=== PATIENT | female | born 1985 | race Caucasian/White ===

== ENCOUNTER 2024-06-10 14:02 | Outpatient (CLI) | payer SELFPAY ==
[2024-06-10 14:35] LABS: Mean Corpuscular HGB Conc 33.3 g/dl (32-36); Mean Corpuscular Hemoglobin 32.5 pg (26-34); Mean Corpuscular Volume 97.5 fl (80-100); Mean Platelet Volume 9.3 fl (7.4-10.4); Platelet Count Result 280 k/mm3 (150-375); Red Cell Distribution Width 12.1 % (11.5-14.5); White Blood Count 4.9 K/mm3 (4.5-10.0)
[2024-06-10 14:48] LABS: Albumin Level 3.9 g/dL (3.5-5.1); Anion Gap 8 mmol/L (4-12); Blood Urea Nitrogen 6 mg/dL (7-17); Calcium 8.7 mg/dL (8.4-10.2); Carbon Dioxide 26 mmol/L (22-30); Chloride 102 mmol/L (98-107); Estimated Glomerular Filt Rate > 60; Glucose 65 mg/dL (65-110); Potassium 3.9 mmol/L (3.4-5.0); Sodium 136 mmol/L (137-145)
[2024-06-10 14:50] LABS: Iron 85 ug/dL (37-170)
[2024-06-10 14:53] LABS: Hemoglobin A1C 4.6 % (<5.7)
[2024-06-10 14:55] LABS: Prealbumin 19.9 mg/dL (17.6-36.0)
[2024-06-13 17:44] LABS: Vitamin B1 15 nmol/L (8-30)
== END 2024-06-10 14:03 | disposition home or self-care (01) ==
PROVIDERS: Visit Provider Surgery Plastic and Reconstructive Surgery
DX: R63.4 Abnormal weight loss (principal)
CPT/HCPCS: 36415; 80048; 82040; 83036; 83540; 84134; 84425; 85027

== ENCOUNTER 2024-07-15 00:09 | Day surgery (SDC) | payer OTHER, SELFPAY ==
[2024-07-08 10:23] VITALS: BMI 23.1
--- NOTE | 2024-07-08 10:35 | SUR.PREOP ---
Report to the Outpatient Waiting Room, entrance under the green pavilion located off [facility], at time 6:00a.m. on date 07/15/2024. Planned Procedure Time: 7:30a.m.? Time changes happen often and if your time is changed the preop area will call you the afternoon before. - You and your visitor will be asked to self-screen and do not enter if you have any COVID symptoms. Please call surgeon if you need to reschedule. - A mask is optional within the hospital at this time. Patients may have clear liquids (water, carbonated beverages, clear teas, apple juice) until 3 hours prior to surgery with a maximum of 20 ounces. - No food from midnight until time of surgery and no smoking - Infants may have breast milk until 4 hours before surgery, infant formula 6 hours prior to surgery. - Children will be allowed to drink immediately following surgery.? If applicable, please bring a bottle or sippy cup to assist with drinking. Juice, water, soda, and popsicles are readily available.? For infants on formula, please bring formula the day of surgery.? Pacifiers are allowed. Take only the following medications with a SIP of water on the morning of surgery: [place] Thyroid DO NOT STOP ANY OF YOUR OTHER PRESCRIPTION MEDICATIONS PRIOR TO SURGERY EXCEPT THE FOLLOWING Medications to discontinue per physician vitamins and supplements Date to take last dose 07/12/2024 Please no make-up, nail haitian, hairspray, perfume, deodorant, or body powder the day of surgery.? No jewelry (including any body piercings) or valuables the day of surgery, leave them at home.? Please take a shower or bath the night before, or the morning of, surgery with an antibacterial soap.? Wear comfortable, loose fitting clothing.? Children are encouraged to wear pajamas. - Jewelry must be removed prior to entering the operating room.? Rings and piercings that are not removed may be cut off. - The hospital will not accept responsibility for valuables.? - Please leave all valuables, including medications, at home the day of surgery. If you are going home after surgery, a licensed coach driver must drive you home.? - NO public transportation without another adult if you receive anesthesia. - We recommend that an adult stay with you for 24 hours following discharge. - We also recommend that you do not drive, make important decision, drink alcoholic beverages, or take any drugs that were not prescribed by your health care provider for at least 24 hours after your discharge time. For Pediatric surgeries, we recommend two adults accompany the child home. Follow any additional instructions given to you from your surgeon. Telephone instructions given to Laura Al and asked if any additional questions and then verbalized understanding. Patient advised to call surgeon office or pre surgery nurse liaison [phone] if any additional questions.
[2024-07-15] VITALS (15 sets, daily range): BP systolic 119–178; BP diastolic 59–81; PULSE 77–126; RESP 10–20; TEMP 35.7–37.1; O2SAT 99–100
--- NOTE | 2024-07-15 05:55 | ECG_ITS ---
Test Date: 2024-07-15 07:23:10 Measurements Intervals [place] Rate: 69 P: 90 SD: 193 QRS: 31 QRSD: 90 T: 30 QT: 408 QTc: 438 Interpretive Statements SINUS RHYTHM BASELINE ARTIFACT- I, II, III, AVR, AVL, AVF, V1, V3 NORMAL ECG No previous ECG available for comparison Electronically Signed On 07-15-2024 07:57:17 HOUSEHOLD COORDINATOR by Kevin Wiley D.O.
[2024-07-15 06:40] LABS: Urine Cotinine NEGATIVE
[2024-07-15] MEDS: LACTATED RINGERS 1,000 ML 30 ML IV CONT (06:50)
--- NOTE | 2024-07-15 06:53 | WPDHPUPDATE1 ---
History and Physical Update Update Date/Time: 07/15/24 06:53 History and Physical has been reviewed, including an updated exam of the patient. There are NO changes in the patient's condition. Risks, benefits, and alternatives have been discussed and questions answered. Patient agrees to proceed with procedure.
--- NOTE | 2024-07-15 06:55 | P.PNAN_ITS ---
Anes - Initial Pre Proc Eval Procedure: Operation Date: 07/15/24 07:30 Proposed Procedures p Belt Lipectomy with Liposuction, - Chris Navarrete MD s Fat Grafting to Bilateral Hips, - Chris Navarrete MD s Bilateral Brachioplasty - Chris Navarrtee MD Date/Time: 07/15/24 06:55 Surgeon: Chris Navarrete MD Pre Op Diagnosis: skin laxity Patient Data Age: 39 Gender: F Height: 1.7 m Weight: 67.1 kg Allergies Allergy/AdvReac Type Severity Reaction Status Date / Time Sulfa (Sulfonamide Allergy Hives Verified 07/15/24 06:39 Antibiotics) Home Medications Medication Instructions Recorded Confirmed Type ascorbic acid 30 mg-collagen, 1 tablet PO DAILY 07/08/24 07/15/24 History hydrolyzed 833.3 mg tablet (Collagen Skin Renewal) ashwagandha root extract 300 mg 300 mg PO DAILY 07/08/24 07/15/24 History capsule carisoprodol 350 mg tablet (Soma) 350 mg PO PRN PRN Muscle Spasm 07/08/24 07/08/24 History docusate sodium 100 mg capsule 100 mg PO BID 07/08/24 07/08/24 History (Colace) enoxaparin 40 mg/0.4 mL 40 mg subcut DAILY 07/08/24 07/08/24 History subcutaneous syringe (Lovenox) guar gum 1 packet PO DAILY 07/08/24 07/15/24 History oxycodone-acetaminophen 5 mg-325 5 - 325 tablet PO PRN PRN Pain 07/08/24 07/08/24 History mg tablet (Percocet) thyroid (pork) 90 mg tablet 90 mg PO DAILY 07/08/24 07/15/24 History ([place] Thyroid) turmeric root extract 500 mg 1,000 mg PO DAILY 07/08/24 07/15/24 History capsule zolpidem 5 mg tablet (Ambien) 5 mg PO HS 07/08/24 07/15/24 History Laboratory Tests 07/15/24 06:17 Cotinine Negative Patient hx anesthesia problems: none Family hx anesthesia problems: none Results Review: All pre-operative results and documents have been reviewed as part of the pre- operative evaluation. [facility] Social History Social History (Reviewed 07/15/24 @ 06:55 by DENNIS March Smoking status: Never smoker Living arrangements: with family Erin Caldwell Final PreProcedure Day of Procedure 07/15/24 06:55 Patient weight: normal Heart: regular rate and rhythm Lungs: clear to auscultation Airway: Mallampati scale Neurological: alert and oriented Last oral intake: >/= 8 hours ASA classification: II Emergent: no Anesthetic plan: proceed Anesthesia type and monitoring: general ETT and standard monitoring Results Review: All pre-operative results and documents have been reviewed as part of the pre- operative evaluation. Hypothyroidism. Active w frequent yoga, no cp or sob. Informed Consent: The patient's anesthetic plan and its attendant risks and benefits were discussed with the patient/family/POA. Questions were solicited and answers provided to the satisfaction of the patient/family/POA.
--- NOTE | 2024-07-15 07:20 | P.OP_ITS ---
Procedure Note - Detailed Date of Procedure 07/15/24 Pre-op Diagnosis skin laxity Post-op Diagnosis Same Procedure Performed 1. Bilateral brachioplasty 2. Belt lipectomy with suction lipectomy 3. Fat grafting bilateral hip dips Surgeon Chris Navarrete MD Anesthesia General Findings Tissue removed: 1309.7 grams Lipoaspirate: 2,000 cc Diastasis: 4mm Significant preexisting abdominal fibrosis Her umbilicus wouldn't reach lower incision and required a small vertical scar inferior. Description of Procedure They are here today for the above procedures. Previously and again today the risks, benefits, alternatives were discussed in extensive detail. I wanted them to be very realistic about the risks involved as well as expectations. We discussed aftercare and what to monitor for. I was very upfront about the risks of wound breakdown leading to loss of skin, open wounds, and need for additional procedures with permanent abdominal deformity. We discussed DVT/PE risks and management. Made sure answered all of their questions to their satisfaction to day and consent was obtained. They were marked in the preoperative holding area with their verification. The patient was taken to the operating room. Anesthesia was provided by anesthesiology. A Carranza catheter was started. Posterior body Placed prone on the operating room table with care taken to protect from injury. Prepped and draped in a standard sterile fashion. A surgical time-out was taken. Stab incisions were made and tumescent solution was infiltrated. Once adequate time was allowed for hemostasis a 5mm basket and 4mm lianna cannula were utilized to complete suction lipectomy based on S.A.F.E. technique in multiple planes and passes. Suction lipectomy continued to result based on pre-operative planning, intra-operative observation, and rolling pinch test which were in full agreement. A 10 blade was used to make the upper incision and dissection was continued inferior elevating what we necessary for closure. I placed patient in slight j ackknife position and excised intervening tissue. This was closed with 3 point suture with 2-0 Vicryl followed 2-0 PDO strattafix, 3-0 stratafix ,running subcuticular 4-0 Monocryl, and tissue glue. Laterally malena were placed for turning. Arms Patient was then placed supine with care taken to protect from injury. Stab incisions were made and I tumesced with a tumescent solution. Once adequate time for hemostasis suction lipectomy was with a 5mm basket cannula based on S.A.F.E. technique and 4mm lianna. This was completed based on preoperative planning, intraoperative observation, and rolling pinch test which was in full agreement. I completely de-fatted the planned resection area and a strip avulsion technique was completed. Starting proximal to distal a 10 blade was used to excise the intervening skin and this was tacked as we proceed to ensure good closure. This was closed using a 2-0 Quill, 3-0 strata fix, running subcuticular 4-0 Monocryl, and Brijit device. Dressings were placed. Abdomen I placed the patient in a flexed position to verify the upper and lower markings would reach. I then placed supine. A thorough abdominal examination was completed. Stab incisions were made and tumescent solution infiltrated. Stab incisions were made and tumescent solution was infiltrated. Once adequate time was allowed for hemostasis a 5mm basket and 4mm lianna cannula were utilized to complete suction lipectomy based on S.A.F.E. technique in multiple planes and passes. Suction lipectomy continued to result based on pre-operative planning, intra-operative observation, and rolling pinch test which were in full agreement. A 10 blade was used to make the upper incision. I continued dissection down to the level of fascia. Elevated just what was necessary for repair of the diastasis. I then again flexed the bed to verify the upper skin flap would reach the lower markings without tension. Once verified I placed her supine once again and a 10 blade used to make the lower incision. I elevated up to level the umbilicus and left the umbilicus intact on a well-vascularized stalk. The intervening tissue was removed. A 2 mm blunt cannula with 0.5% bupivacaine was injected deep to the fascia bilaterally. I plicated the diastasis recti using 0 PDO Stratafix barbed suture. This was in 2 separate layers using 2 separate sutures as well. After the patient was flexed (below) plicated the fascia with 0 PDO Stratafix in two separate layers. The patient was flexed and starting from superior to inferior began plication using 2-0 Vicryl to obliterate all space in a standard progressive tension fashion. At the umbilicus I marked out the location of the skin and inset this with 3-0 Monocryl and 4-0 Vicryl. I continued the remainder of the plication using 2-0 Vicryl until I reached my lower planned scar line. I trimmed any excess skin of the upper flap making sure this was a tension-free closure. 15 Richie drain was placed. I then approximated using a 3 point suture with 2-0 Vicryl followed by 2-0 PDO Stratafix, 3-0 Stratafix ,running subcuticular 4-0 Monocryl, and tissue glue. Fluffs and an abdominal binder were placed. The patient was transferred to the bed in a flexed position. Awoken and taken to the PACU without difficulty. All instrument and sponge counts were correct at the end of the case. Estimated Blood Loss 100 Drains Yes (15 Richie) Packing No Pathology None sent Complications No immediate complications Condition Stable Disposition PACU
[2024-07-15] MEDS: ceFAZolin 2 GM/D5W 50 ML 2 GM/50 ML BAG IVPB (07:34)
[2024-07-15] MEDS: TRANEXAMIC ACID 1,000MG/ISO100 1,000 MG/100 ML BAG 200 MG IVPB (07:34)
[2024-07-15] MEDS: LACTATED RINGERS IRRIG 1,000 ML, LIDOCAINE HCL 1% LOCAL INJ 50 ML, EPINEPHrine HCL INJ ... INFILTRATE (08:31)
[2024-07-15] MEDS: BUPIVACAINE/EPINEPHRINE 0.5% 50 ML VIAL 60 ML INFILTRATE (08:32)
[2024-07-15] MEDS: ceFAZolin SODIUM 1 GM VIAL 2 GM IV PUSH (14:30)
[2024-07-15] MEDS: fentaNYL CITRATE INJ (*CRX) 100 MCG/2 ML VIAL 25 MCG IV PUSH ×8 (16:00→16:20)
[2024-07-15] MEDS: HYDROmorphone HCL INJ (*CRX) 1 MG/ML SYR 0.5 MG IV PUSH ×4 (16:22→16:42)
[2024-07-15] MEDS: diphenhydrAMINE HCl INJ 50 MG/ML VIAL 25 MG IV PUSH (16:32)
--- NOTE | 2024-07-15 16:37 | SUR.PHASEI ---
Hive noted to patient's chest, and a few on her cheeks below her eyes. Patient states she is only allergic to Sulfa. She has had fentanyl and dilaudid before with no reaction. Patient states she gets hives with a stress response. 25mg of IV benadryl ordered.
[2024-07-15] MEDS: MIDAZOLAM HCL (*CRX) 2 MG/2 ML VIAL IV PUSH ×2 (16:55→18:59)
[2024-07-15] MEDS: KETOROLAC 15 MG/ML VIAL (*BKC) IV PUSH (18:06)
[2024-07-15] MEDS: oxyCODONE/ACETAMINOPHEN (*CRX) 5-325 MG TABLET PO ×2 (20:18→23:03)
--- NOTE | 2024-07-15 20:32 | ADMGEN ---
This patient, Laura Al, was admitted to Medical Room 249-01. Patient/family oriented to hospital policies and general routines including ID bracelet, bed and alarms, visiting hours, pain management, procedures, bathroom and other care routines, personal items, smoking policy, room service/diet, and visiting hours. Information on how to activate the Rapid Response Team has been discussed. Patient/Family are encouraged to report perceived risks to care and to ask questions if they do not understand what they are told or what they should do.
[2024-07-15] MEDS: DOCUSATE SODIUM 100 MG CAPSULE PO (21:34)
[2024-07-15] MEDS: carisoprodoL (*CRX) 350 MG TABLET PO (23:03)
[2024-07-15] MEDS: KETOROLAC 10 MG TABLET PO (23:04)
[2024-07-16] VITALS: BP 151/74; PULSE 78; RESP 18; TEMP 36.6; O2SAT 100
[2024-07-16] MEDS: MORPHINE SULFATE (*CRX) 2 MG/ML INJ IV PUSH ×2 (00:21→08:06)
[2024-07-16 00:41] VITALS: BP 144/65; PULSE 78; RESP 18; TEMP 36.6; O2SAT 100
[2024-07-16] MEDS: oxyCODONE/ACETAMINOPHEN (*CRX) 5-325 MG TABLET 2 TABLET PO (02:06)
[2024-07-16 04:00] VITALS: BP 108/48; PULSE 76; RESP 18; TEMP 36.4; O2SAT 98
[2024-07-16] MEDS: carisoprodoL (*CRX) 350 MG TABLET PO ×2 (05:36→11:21)
[2024-07-16] MEDS: KETOROLAC 10 MG TABLET PO ×2 (05:37→11:20)
[2024-07-16] MEDS: oxyCODONE/ACETAMINOPHEN (*CRX) 5-325 MG TABLET 1 TABLET PO ×2 (05:39→09:46)
--- NOTE | 2024-07-16 06:23 | P.PN_ITS ---
Progress Note: A&P Assessment and Plan (1) Skin laxity: Code(s): L57.4 - Cutis laxa senilis Status: Acute Assessment and Plan: Doing well after doing well after bilateral brachioplasty, belt lipectomy with suction lipectomy, and fat grafting bilateral lateral hip dips. Will discharge home. She is going to follow-up in our clinic after discharge to assist with dressings / supplies. Today we had a lengthy discussion about the care. Activity limitations. What to monitor for. What is an emergency and when to dial 911 / proceed to the ER. This was a lengthy open ended conversation making sure they were well informed. Answered all their questions. They voiced a clear understanding. Will discharge home. Call with any questions or concerns in the meantime. (2) Localized adiposity: Code(s): E65 - Localized adiposity Status: Acute Subjective Date/time seen: 07/16/24 06:23 Interval history: She woke up in some distress with pain. She states the exact same thing happened with previous and she was improved the following day. Now doing well after bilateral brachioplasty, belt lipectomy with suction lipectomy, and fat grafting bilateral lateral hip dips. Ambulating. Pain controlled. No nausea / vomiting. No fevers / chills. No shortness of breast. No chest pain. No calf tenderness. Normal hand sensation and ROM. A brigiit fell off left distal arm brachioplasty and this was secured with steri-strips overnight. Review of Systems Review of Systems: All systems reviewed & are unremarkable except as noted in HPI and below Exam Narrative: Alert & Oriented NOD Respiratory unlabored Bilateral arms soft. Hand with normal sensation. Full ROM. Good color / cap refill. Abdomen is healing well. No signs of infection. No hematoma. No seroma. Good color and capillary refill. No calf tenderness. Negative Kimberly's Objective Data Vital Signs Vital Signs: Vital Signs - 24 hr 07/15/24 15:55 07/15/24 16:10 07/15/24 16:25 Temperature 35.7 C L 37.1 C Pulse Rate 117 H 114 H 106 H Respiratory Rate 12 12 18 Blood Pressure 119/80 157/80 H 143/74 H Pulse Oximetry 100 100 100 Oxygen Delivery Simple Face Mask Simple Face Mask Simple Face Mask Oxygen Flow Rate 8 8 8 07/15/24 16:40 07/15/24 16:55 07/15/24 17:10 Temperature Pulse Rate 126 H 96 96 Respiratory Rate 18 10 L 12 Blood Pressure 178/81 H 141/72 H 136/65 Pulse Oximetry 100 100 100 Oxygen Delivery Room Air Nasal Cannula Nasal Cannula Oxygen Flow Rate 2 2 07/15/24 17:25 07/15/24 17:40 07/15/24 17:55 Temperature Pulse Rate 94 96 96 Respiratory Rate 12 12 12 Blood Pressure 138/75 137/74 127/71 Pulse Oximetry 100 99 100 Oxygen Delivery Nasal Cannula Nasal Cannula Nasal Cannula Oxygen Flow Rate 2 2 2 07/15/24 18:10 07/15/24 18:40 07/15/24 19:10 Temperature Pulse Rate 92 94 82 Respiratory Rate 10 L 14 14 Blood Pressure 139/78 144/80 H 146/59 H Pulse Oximetry 100 100 100 Oxygen Delivery Nasal Cannula Nasal Cannula Nasal Cannula Oxygen Flow Rate 2 2 2 07/15/24 19:25 07/15/24 21:10 07/15/24 20:00 Temperature 36.8 C Pulse Rate 85 89 Respiratory Rate 10 L 18 Blood Pressure 133/80 Pulse Oximetry 100 99 Oxygen Delivery Nasal Cannula Room Air Oxygen Flow Rate 2 07/16/24 00:00 07/16/24 00:41 07/16/24 04:00 Temperature 36.6 C 36.6 C 36.4 C L Pulse Rate 78 78 76 Respiratory Rate 18 18 18 Blood Pressure 151/74 H 144/65 H 108/48 L Pulse Oximetry 100 100 98 Oxygen Delivery Oxygen Flow Rate Intake/Output Intake/Output: Intake & Output 07/13/24 07/14/24 07/15/24 07/16/24 23:59 23:59 23:59 23:59 Intake Total 1650 Balance 1650 Meds/Results Medications: Active Medications Generic Name Dose Route Start Last Admin Trade Name Freq PRN Reason Stop Dose Admin Carisoprodol 350 mg 07/16/24 00:00 07/16/24 05:36 Carisoprodol (*Crx) 350 Mg Tablet PO 350 mg Q6HR LEONID Administration Diazepam 5 mg 07/15/24 18:12 Diazepam (*Crx) 5 Mg Tablet PO TID PRN Anxiety Docusate Sodium 100 mg 07/15/24 21:00 07/15/24 21:34 Docusate Sodium 100 Mg Capsule PO 100 mg Q12HR LEONID Administration Enoxaparin Sodium 40 mg 07/16/24 09:00 Enoxaparin 40 Mg/0.4 Ml Syringe SUB-Q DAILY [facility] Ketorolac Tromethamine 10 mg 07/16/24 00:00 07/16/24 05:37 Ketorolac 10 Mg Tablet PO 07/17/24 18:01 10 mg Q6HR LEONID Administration Morphine Sulfate 2 mg 07/15/24 18:12 07/16/24 00:21 Morphine Sulfate (*Crx) 2 Mg/Ml Inj IV PUSH 2 mg Q2H PRN Administration Pain Ondansetron HCl 4 mg 07/15/24 18:12 Ondansetron Inj 4 Mg/2 Ml Vial IV PUSH Q6H PRN Nausea Oxycodone/Acetaminophen 1 tablet 07/15/24 23:58 07/16/24 05:39 Oxycodone/Acetaminophen (*Crx) 5-325 Mg Tablet PO 1 tablet Q6H PRN Administration Pain Oxycodone/Acetaminophen 2 tablet 07/16/24 00:00 07/16/24 02:06 Oxycodone/Acetaminophen (*Crx) 5-325 Mg Tablet PO 2 tablet Q6H PRN Administration Pain Rated 7-10 Thyroid 90 mg 07/16/24 09:00 Thyroid 30 Mg Tablet PO DAILY [facility] Labs Labs: Laboratory Results - last 24 hr 07/15/24 06:17 Cotinine Negative
--- NOTE | 2024-07-16 06:26 | P.DS_ITS ---
DS: Admitting Diagnosis Discharge Date 07/16/2024 Admitting Diagnosis Skin laxity, localized adiposity DS: Discharge Diagnosis Discharge Diagnosis (1) Localized adiposity: Code(s): E65 - Localized adiposity Status: Acute (2) Skin laxity: Code(s): L57.4 - Cutis laxa senilis Status: Acute DS: Summary Hospital Course Hospital Course: She underwesnt bilateral brachioplasty, belt lipectomy with suction lipectomy, and fat grafting bilateral lateral hip dips. Postoperativly pain was difficult to control. Improved POD#1. Will discharge home. Time Spent with Patient Time attestation: Total time spent providing and/or coordinating discharge services: Exam Narrative: Alert & Oriented NOD Respiratory unlabored Bilateral arms soft. Hand with normal sensation. Full ROM. Good color / cap refill. Abdomen is healing well. No signs of infection. No hematoma. No seroma. Good color and capillary refill. No calf tenderness. Negative Kimberly's DS: Data Data Completed and Pending Labs on day of discharge: Labs from last 24 hours 07/15/24 06:17 Cotinine Negative Discharge Plan Discharge Patient Disposition: Home, Self-Care Discharge Instructions: POST OPERATIVE DISCHARGE INSTRUCTIONS JERMAINE NAVARRETE M.D. [facility] [address] [place] [address] * No driving for 24 hours after anesthesia and while you are taking pain medication. * Take all prescribed medication as directed * Diet as tolerated. * No lifting or activity that raises blood pressure for 48 hours. * Regular walking / ambulation. * May shower 24 hours after surgery. Once you shower do not take pain medication before showering as the combination of medication and heat may cause you to feel dizzy or pass out. * No pools or tubs for 2 weeks. * Slowly stand up straight as tolerated. * No straining or lifting more than 20 pounds. * If no bowel movement within 24 hours may use laxative. * Call with any questions or concerns. * Dressing Care: Continue abdominal binder / foam and arm elisha wraps 23 hours per day. If you have any questions or concerns, please call the office . If it is after hours you will be directed to the admission liaison exchange. Shortness of breath, chest pain, or other medical emergency dial 911 / proceed to the Emergency Room. Stand Alone Forms: General Discharge Instructions Follow-up/Referrals: Jermaine Navarrete MD [Physician] - Other (Tomorrow 07/16/2024) Discharge Orders: Discharge Order (Routine); Ordered 07/16/24 Ordered By: Jermaine Navarrete Discharge Medications: Continued carisoprodol [Soma] 350 mg tablet 350 mg PO PRN PRN (Reason: Muscle Spasm) Patient Comments: Taking this after surgery oxycodone-acetaminophen [Percocet] 5-325 mg tablet 5 - 325 tablet PO PRN PRN (Reason: Pain) Patient Comments: Taking this after surgery docusate sodium [Colace] 100 mg capsule 100 mg PO BID Patient Comments: Taking this after surgery zolpidem [Ambien] 5 mg tablet 5 mg PO HS enoxaparin [Lovenox] 40 mg/0.4 mL syringe 40 mg subcut DAILY Patient Comments: Taking this after surgery thyroid (pork) [[place] Thyroid] 90 mg tablet 90 mg PO DAILY turmeric root extract 500 mg Capsule 1,000 mg PO DAILY guar gum Packet 1 packet PO DAILY ashwagandha root extract 300 mg Capsule 300 mg PO DAILY Collagen Skin Renewal 30-833.3 mg Tablet 1 tablet PO DAILY Other Ambulatory Orders: [place] 12 lead EKG (Routine) Timeframe: [id number] Location: Determined by Patient Ordered By: Sander Buenrostro
[2024-07-16 06:29] VITALS: BP 120/67; PULSE 77; RESP 18; TEMP 36.6; O2SAT 100
[2024-07-16 08:00] VITALS: BP 149/91; PULSE 94; RESP 18; TEMP 36.6; O2SAT 100
[2024-07-16] MEDS: THYROID 30 MG TABLET 90 MG PO (08:06)
[2024-07-16] MEDS: DOCUSATE SODIUM 100 MG CAPSULE PO (08:06)
[2024-07-16] MEDS: ENOXAPARIN 40 MG/0.4 ML SYRINGE SUB-Q (08:10)
== END 2024-07-16 11:57 | disposition home or self-care (01) ==
LOC: ANHSURGERY 07:31 → ANH2MED 19:37
PROVIDERS: Visit Provider Surgery Plastic and Reconstructive Surgery
PROC: (CPT 15836; principal; 2024-07-15 07:30)
PROC: (CPT 15769; 2024-07-15 07:30)
PROC: (CPT 15836; 2024-07-15 07:30)
DX: Z41.1 Encounter for cosmetic surgery (principal); L57.4 Cutis laxa senilis; E65 Localized adiposity
CPT/HCPCS: 15836; 15878; 15877; 15830; 15847; 80307; 93005; A9270; J0171; J0330; J0690; J1100; J1171; J1200; J1650; J1885; J2003; J2250; J2270; J2405; J2704; J3010; J7120

== ENCOUNTER 2024-07-25 21:10 | Day surgery (SDC) | payer OTHER, SELFPAY ==
[2024-07-25] VITALS (8 sets, daily range): BP systolic 123–135; BP diastolic 52–73; PULSE 71–98; RESP 12–19; TEMP 36.3; O2SAT 98–100
--- NOTE | 2024-07-25 18:53 | PM.IMHP ---
H&P: HPI History of Present Illness Date/Time: 07/25/24 18:53 Chief Complaint: Open wound / bleeding abdomen Narrative: She underwent bilateral brachioplasty, bel lipectomy with suction lipectomy, and bilateral hip dip fat grafting on 07/15/2024. Intraoperatively was found to have signficant fibrosis of the soft tissue and subsequent breakdown at the t junction of her abdominoplasty centrally. Her arms have done well. On 07/24/2024 she began having some bleeding from this t junction that appeared to be old blood. This has become slower; however, persists since that time. Further she has had difficulty with pain management and we have learned has been seeing pain management prior to surgery. Today with continued drainage and limited pain control labs were ordered. Findings below. No fevers or chills. No nausea or vomiting. No SOB. No CP. No calf tenderness. No complaints of heart racing or other concerns. No lightheadedness. She states her only concerns are the drainage and discomfort extending from her xiphoid to the pubic bone. We had a lengthy discussion about her options and given the breakdown, bleeding (unclear if active or old), and low h/h she has elected to proceed with abdominal washout, debridement and possible closure. Outside labs today: WBC 5.4 RBC 2.77 HB 8.8 Hct 27.4 Glucose 99 Sodium 140 Potassium 4.2 Chloride 108 CO2 23 Calcium 8.6 BUN 5 Creatine 0.7 BUN/Creatine Ratio 7 Albumin / Prealbumin pending Review of Systems Review of Systems: All systems reviewed & are unremarkable except as noted in HPI and below [facility] Social History Social History Smoking status: Never smoker Alcohol intake: never Substance use: never Substance use type: does not use Do You Feel Safe in your Home?: No Lack of Transportation: No Lack of Food: Never True Current Housing: I Have Housing Concerned About Future Housing: No Difficulty Paying Gas/Electric Bills: No Difficulty Paying for Meds: No Currently Unemployed: No Education: Associate Degree Difficulty w/ Childcare or Family Care: No Living arrangements: with family Spiritual care concerns: No Meds Home Medications and Allergies Home Medications Medication Instructions Recorded Confirmed Type ascorbic acid 30 mg-collagen, 1 tablet PO DAILY 07/08/24 07/15/24 History hydrolyzed 833.3 mg tablet (Collagen Skin Renewal) chaza root extract 300 mg 300 mg PO DAILY 07/08/24 07/15/24 History capsule carisoprodol 350 mg tablet (Soma) 350 mg PO PRN PRN Muscle Spasm 07/08/24 07/08/24 History docusate sodium 100 mg capsule 100 mg PO BID 07/08/24 07/08/24 History (Colace) enoxaparin 40 mg/0.4 mL 40 mg subcut DAILY 07/08/24 07/08/24 History subcutaneous syringe (Lovenox) guar gum 1 packet PO DAILY 07/08/24 07/15/24 History oxycodone-acetaminophen 5 mg-325 5 - 325 tablet PO PRN PRN Pain 07/08/24 07/08/24 History mg tablet (Percocet) thyroid (pork) 90 mg tablet 90 mg PO DAILY 07/08/24 07/15/24 History ([place] Thyroid) turmeric root extract 500 mg 1,000 mg PO DAILY 07/08/24 07/15/24 History capsule zolpidem 5 mg tablet (Ambien) 5 mg PO HS 07/08/24 07/15/24 History Allergies Allergy/AdvReac Type Severity Reaction Status Date / Time Sulfa (Sulfonamide Allergy Hives Verified 07/15/24 06:39 Antibiotics) Exam Narrative: Alert & Oriented NOD Respiratory unlabored Bilateral arms are healing well. No signs of infection. No hematoma. No seroma. Good color and capillary refill. Abdomen with some necrosis at t junction. Some dark bloody drainage. No signs of infection. No hematoma. No seroma. No calf tenderness. Negative Kimberly's Assessment and Plan Assessment and plan (1) Skin laxity: Code(s): L57.4 - Cutis laxa senilis Status: Acute Assessment and Plan: After a lengthy discussion of her options given breakdown, bleeding, and asymptomatic but low h/h she would like to proceed with abdominal washout, debridement and possible closure. Postoperative will plan to keep her overnight. Risks, benefits, alternatives were discussed in extensive detail. I want to be very realistic about the risks involved as well as expectations. Reviewed consent in detail. Discussed aftercare and what to monitor for. Made sure I answered all questions answered to satisfaction and consent obtained. (2) Localized adiposity: Code(s): E65 - Localized adiposity Status: Acute (3) Postoperative anemia: Code(s): D64.9 - Anemia, unspecified Status: Acute Assessment and Plan: Asymptomatic. Will check for active bleeding intraoperative. SCDs for post-operative DVT prophylaxis, hold blood thinners. Recheck labs.
--- NOTE | 2024-07-25 19:58 | WPDHPUPDATE1 ---
History and Physical Update Update Date/Time: 07/25/24 19:58 History and Physical has been reviewed, including an updated exam of the patient. There are NO changes in the patient's condition. Risks, benefits, and alternatives have been discussed and questions answered. Patient agrees to proceed with procedure.
--- NOTE | 2024-07-25 19:58 | W.PM.PROC2 ---
Procedure Note - Detailed Date of Procedure 07/25/24 Pre-op Diagnosis PRE OP Post-op Diagnosis Same Procedure Performed Abdominal washout, debridement and closure Surgeon Chris Navarrete MD Anesthesia General Findings No active bleeding identified Irrigated with more than 1 liter of saline Closed with < 0.3 x 0.3 cm open wound at t junction. 15 Richie drain placed No signs of infection Description of Procedure They are here today for the above procedures. Risks, benefits, alternatives were discussed in extensive detail. I wanted them to be very realistic about the risks involved as well as expectations. Made sure answered all of their questions to their satisfaction today and consent was obtained. The patient was taken to the operating room. Anesthesia was provided by anesthesiology. A 50/50 mix of 1% lidocaine with epi and 0.25% bupivacaine was utilized to provide local anesthesia. A 10 blade was used to excise the open wound / area of necrosis. Wound explored and copiously irrigated with 1 Liter of saline. I only elevated what was required for closure (minimal). Monitored and it was clear no evidence of bleeding. 15 Richie drain placed. Closed with 2-0 Vicryl, 3-0 Monocryl, and 3-0 Nylon vertical matress (as well as small area laterally of running subcuticular 4-0 Monocryl and glue) Fluffs and an abdominal binder were placed. The patient was transferred to the bed in a flexed position. [place] and taken to the PACU without difficulty. All instrument and sponge counts were correct at the end of the case. Estimated Blood Loss 10 Drains Yes (15 Richie) Packing No Pathology None sent Complications No immediate complications Condition Stable Disposition PACU
--- NOTE | 2024-07-25 19:59 | WPDANESEPPF ---
Anes - Initial Pre Proc Eval Procedure: Operation Date: 07/25/24 19:00 Proposed Procedures p I&D Debride Back Chest Torso - Chris Navarrete MD Date/Time: 07/25/24 19:59 Surgeon: Chris Navarrete MD Pre Op Diagnosis: PRE OP Patient Data Age: 39 Gender: F Height: Weight: Allergies Allergy/AdvReac Type Severity Reaction Status Date / Time Sulfa (Sulfonamide Allergy Hives Verified 07/15/24 06:39 Antibiotics) Home Medications Medication Instructions Recorded Confirmed Type ascorbic acid 30 mg-collagen, 1 tablet PO DAILY 07/08/24 07/15/24 History hydrolyzed 833.3 mg tablet (Collagen Skin Renewal) ashwagandha root extract 300 mg 300 mg PO DAILY 07/08/24 07/15/24 History capsule carisoprodol 350 mg tablet (Soma) 350 mg PO PRN PRN Muscle Spasm 07/08/24 07/08/24 History docusate sodium 100 mg capsule 100 mg PO BID 07/08/24 07/08/24 History (Colace) enoxaparin 40 mg/0.4 mL 40 mg subcut DAILY 07/08/24 07/08/24 History subcutaneous syringe (Lovenox) guar gum 1 packet PO DAILY 07/08/24 07/15/24 History oxycodone-acetaminophen 5 mg-325 5 - 325 tablet PO PRN PRN Pain 07/08/24 07/08/24 History mg tablet (Percocet) thyroid (pork) 90 mg tablet 90 mg PO DAILY 07/08/24 07/15/24 History ([place] Thyroid) turmeric root extract 500 mg 1,000 mg PO DAILY 07/08/24 07/15/24 History capsule zolpidem 5 mg tablet (Ambien) 5 mg PO HS 07/08/24 07/15/24 History Patient hx anesthesia problems: none Family hx anesthesia problems: none Results Review: All pre-operative results and documents have been reviewed as part of the pre-operative evaluation. [facility] Social History Social History Smoking status: Never smoker Alcohol intake: never Substance use: never Substance use type: does not use Do You Feel Safe in your Home?: No Lack of Transportation: No Lack of Food: Never True Current Housing: I Have Housing Concerned About Future Housing: No Difficulty Paying Gas/Electric Bills: No Difficulty Paying for Meds: No Currently Unemployed: No Education: Associate Degree Difficulty w/ Childcare or Family Care: No Living arrangements: with family Spiritual care concerns: No Anes - Eval Final PreProcedure Day of Procedure 07/25/24 19:59 Patient weight: normal Heart: regular rate and rhythm Lungs: clear to auscultation Airway: Mallampati scale class II Neurological: alert and oriented Last oral intake: >/= 8 hours ASA classification: II Emergent: no Anesthetic plan: proceed Anesthesia type and monitoring: general LMA and standard monitoring Results Review: All pre-operative results and documents have been reviewed as part of the pre-operative evaluation. Informed Consent: The patient's anesthetic plan and its attendant risks and benefits were discussed with the patient/family/POA. Questions were solicited and answers provided to the satisfaction of the patient/family/POA.
[2024-07-25] MEDS: ceFAZolin 2 GM/D5W 50 ML 2 GM/50 ML BAG IVPB (20:18)
[2024-07-25] MEDS: LIDOCAINE HCL 1% LOCAL INJ 20 ML VIAL 30 ML INFILTRATE (20:29)
[2024-07-25] MEDS: BUPIVACAINE/EPINEPHRINE 0.5% 50 ML VIAL 30 ML INFILTRATE (20:29)
[2024-07-25] MEDS: LACTATED RINGERS 1,000 ML 30 ML IV CONT ×2 (21:22)
[2024-07-25] MEDS: fentaNYL CITRATE INJ (*CRX) 100 MCG/2 ML VIAL 25 MCG IV PUSH ×8 (21:43→22:05)
[2024-07-25] MEDS: HYDROmorphone HCL INJ (*CRX) 1 MG/ML SYR 0.5 MG IV PUSH ×4 (22:15→22:30)
--- NOTE | 2024-07-25 22:31 | SUR.PHASEI ---
PT WAS HAVING TROUBLE URINATING IN STRETCHER, SHE ASKED FOR STRAIGHT CATH. 1000ML WERE COLLECTED.
[2024-07-25] MEDS: diphenhydrAMINE HCl INJ 50 MG/ML VIAL 25 MG IV PUSH (22:48)
--- NOTE | 2024-07-25 23:13 | PC.NURSE ---
patient arrived from PACU to room 342 at 2300. Patient orientated to room and education provided on the next steps in care. No signs of distress at this time.
[2024-07-26 00:16] VITALS: BP 163/68; PULSE 92; RESP 20; TEMP 36.6; O2SAT 100
[2024-07-26 00:17] VITALS: BMI 25.6
[2024-07-26] MEDS: LACTATED RINGERS 1,000 ML 125 ML IV CONT (00:32)
[2024-07-26] MEDS: KETOROLAC 10 MG TABLET PO ×2 (00:33→05:16)
[2024-07-26] MEDS: carisoprodoL (*CRX) 350 MG TABLET PO ×2 (00:33→05:16)
[2024-07-26] MEDS: diphenhydrAMINE HCl INJ 50 MG/ML VIAL 25 MG IV PUSH (00:39)
[2024-07-26] MEDS: oxyCODONE/ACETAMINOPHEN (*CRX) 5-325 MG TABLET PO ×2 (02:06→07:57)
[2024-07-26] MEDS: ONDANSETRON INJ 4 MG/2 ML VIAL IV PUSH ×2 (02:11→07:59)
[2024-07-26 04:35] VITALS: BP 162/95; PULSE 85; RESP 20; TEMP 36.5; O2SAT 100
[2024-07-26] MEDS: MORPHINE SULFATE (*CRX) 2 MG/ML INJ IV PUSH (05:50)
[2024-07-26] MEDS: diazePAM (*CRX) 5 MG TABLET PO (05:50)
[2024-07-26 06:00] LABS: Hematocrit 29.4 % (37.0-47.0); Hemoglobin 9.5 g/dL (12.0-15.0); Mean Corpuscular HGB Conc 32.3 g/dl (32-36); Mean Corpuscular Hemoglobin 31.9 pg (26-34); Mean Corpuscular Volume 98.7 fl (80-100); Mean Platelet Volume 8.1 fl (7.4-10.4); Platelet Count Result 331 k/mm3 (150-375); Red Blood Count 2.98 M/mm3 (4.2-5.4); Red Cell Distribution Width 14.2 % (11.5-14.5); White Blood Count 5.8 K/mm3 (4.5-10.0)
[2024-07-26 06:12] LABS: Albumin Level 3.4 g/dL (3.5-5.1); Anion Gap 4 mmol/L (4-12); Blood Urea Nitrogen 5 mg/dL (7-17); Calcium 8.1 mg/dL (8.4-10.2); Carbon Dioxide 28 mmol/L (22-30); Chloride 105 mmol/L (98-107); Estimated CRCL calculation 89 ml/min; Estimated Glomerular Filt Rate > 60; Glucose 88 mg/dL (65-110); Potassium 3.6 mmol/L (3.4-5.0); Sodium 137 mmol/L (137-145)
[2024-07-26 06:20] LABS: Prealbumin 12.7 mg/dL (17.6-36.0)
--- NOTE | 2024-07-26 06:45 | P.PN_ITS ---
Progress Note: A&P Assessment and Plan (1) Skin laxity: Code(s): L57.4 - Cutis laxa senilis Status: Acute Assessment and Plan: Improving after bilateral brachioplasty, belt lipectomy with suction lipectomy, and bilateral hip dip fat grafting on 07/15/2024 and debridement / washout / closure on 07/25/2024. Will plan for discharge later today. Today we had a lengthy discussion about the care. Discussed nutrition and the critical importance of good nutrition. What to monitor for. This was outlined in great detail. Call with any questions or concerns. (2) Localized adiposity: Code(s): E65 - Localized adiposity Status: Acute (3) Postoperative anemia: Code(s): D64.9 - Anemia, unspecified Status: Acute Assessment and Plan: No signs or symptoms of active bleeding and h/h improving. Subjective Date/time seen: 07/26/24 06:45 Interval history: She underwent bilateral brachioplasty, belt lipectomy with suction lipectomy, and bilateral hip dip fat grafting on 07/15/2024. At the time of surgery sig nficiant fibrosis was noted and a t-junction required with her abdominoplasty. Subsequent breakdown of this location. She was having drainage from site, hemoglobin yesterday 8.8 and significant pain so proceeded to the OR for debridement / washout / closure. Intraoperative no bleeding was noted. Debrided and mostly closed with drain placement. Today [TODAY] Review of Systems Review of Systems: All systems reviewed & are unremarkable except as noted in HPI and below Exam Narrative: Alert & Oriented NOD Respiratory unlabored Bilateral arms are healing well. No signs of infection. No hematoma. No seroma. Good color and capillary refill. Abdomen healing well. Sutures in place. Drain in place and serosangenous. No signs of infection. No hematoma. No seroma. No calf tenderness. Negative Kimberly's Objective Data Vital Signs Vital Signs: Vital Signs - 24 hr 07/25/24 21:22 07/25/24 21:30 07/25/24 21:45 Temperature 36.3 C L Pulse Rate 71 80 98 Respiratory Rate 16 13 14 Blood Pressure 127/54 L 124/52 L 124/52 L Pulse Oximetry 100 100 100 Oxygen Delivery Simple Face Mask Simple Face Mask Room Air Oxygen Flow Rate 10 10 07/25/24 22:00 07/25/24 22:15 07/25/24 22:30 Temperature Pulse Rate 96 87 84 Respiratory Rate 19 17 12 Blood Pressure 135/62 123/66 135/73 Pulse Oximetry 100 100 98 Oxygen Delivery Room Air Room Air Room Air Oxygen Flow Rate 07/25/24 22:40 07/25/24 23:19 07/26/24 00:16 Temperature 36.6 C Pulse Rate 90 90 92 Respiratory Rate 12 12 20 Blood Pressure 131/61 163/68 H Pulse Oximetry 98 98 100 Oxygen Delivery Room Air Room Air Oxygen Flow Rate Intake/Output Intake/Output: Intake & Output 07/23/24 07/24/24 07/25/24 07/26/24 23:59 23:59 23:59 23:59 Intake Total 600 Output Total 1000 30 Balance -400 -30 Meds/Results Medications: Active Medications Generic Name Dose Route Start Last Admin Trade Name Freq PRN Reason Stop Dose Admin Carisoprodol 350 mg 07/26/24 00:00 07/26/24 05:16 Carisoprodol (*Crx) 350 Mg Tablet PO 350 mg Q6HR LEONID Administration Diazepam 5 mg 07/26/24 00:09 07/26/24 05:50 Diazepam (*Crx) 5 Mg Tablet PO 5 mg TID PRN Administration Anxiety Docusate Sodium 100 mg 07/26/24 09:00 Docusate Sodium 100 Mg Capsule PO Q12HR LEONID Lactated Ringer's 1,000 mls @ 125 mls/hr 07/25/24 21:10 07/26/24 00:32 Lr - Lactated Ringers Iv IV CONT 125 mls/hr .Q8H LEONID Administration Ketorolac Tromethamine 10 mg 07/26/24 00:00 07/26/24 05:16 Ketorolac 10 Mg Tablet PO 07/27/24 18:01 10 mg Q6HR LEONID Administration Morphine Sulfate 2 mg 07/26/24 00:08 07/26/24 05:50 Morphine Sulfate (*Crx) 2 Mg/Ml Inj IV PUSH 2 mg Q2H PRN Administration Pain Ondansetron HCl 4 mg 07/26/24 00:13 07/26/24 02:11 Ondansetron Inj 4 Mg/2 Ml Vial IV PUSH 4 mg Q6H PRN Administration Nausea Oxycodone/Acetaminophen 1 - 2 tablet 07/26/24 00:13 07/26/24 02:06 Oxycodone/Acetaminophen (*Crx) 5-325 Mg Tablet PO 1 tablet Q6H PRN Administration Pain Rated 3-10 Labs Labs: Laboratory Results - last 24 hr 07/26/24 05:53 WBC 5.8 RBC 2.98 L Hgb 9.5 L D Hct 29.4 L MCV 98.7 MCH 31.9 MCHC 32.3 RDW 14.2 Plt Count 331 MPV 8.1 Sodium 137 Potassium 3.6 Chloride 105 Carbon Dioxide 28 Anion Gap 4 BUN 5 L Creatinine 0.70 Estim Creat Clear Calc 89 Estimated GFR > 60 Glucose 88 Calcium 8.1 L Albumin 3.4 L Prealbumin 12.7 L
--- NOTE | 2024-07-26 06:52 | P.DS_ITS ---
DS: Admitting Diagnosis Discharge Date 07/26/2024 Admitting Diagnosis Skin laxity, localized adiposity, postoperative anemia, open wound DS: Discharge Diagnosis Discharge Diagnosis (1) Skin laxity: Code(s): L57.4 - Cutis laxa senilis Status: Acute (2) Localized adiposity: Code(s): E65 - Localized adiposity Status: Acute (3) Postoperative anemia: Code(s): D64.9 - Anemia, unspecified Status: Acute DS: Summary Hospital Course Hospital Course: She underwent bilateral brachioplasty, belt lipectomy with suction lipectomy, and bilateral hip dip fat grafting on 07/15/2024. At the time of surgery significant fibrosis was noted and a t-junction required with her abdominoplasty. Subsequent breakdown of this location. She was having drainage from site, hemoglobin yesterday 8.8 and significant pain so proceeded to the OR for debridement / washout / closure. Intraoperative no bleeding was noted. Debrided and mostly closed with drain placement. Hemoglobin increased from 8.8 to 9.5 today. Albumin 3.4 Prealbumin 12.7 She and her significant other state that postoperative she always has more pain than anticipated. She does see pain management and I encouraged her to reach out. Also encourage good nutrition. Will discharge home. See back. Call with any questions or concerns. Time spent discussing smoking cessation with patient: more than 10 minutes Time Spent with Patient Time attestation: Total time spent providing and/or coordinating discharge services: Exam Narrative: Alert & Oriented NOD Respiratory unlabored Bilateral arms are healing well. No signs of infection. No hematoma. No seroma. Good color and capillary refill. Abdomen healing well. Sutures in place. Drain in place and serosangenous. No signs of infection. No hematoma. No seroma. No calf tenderness. Negative Kimberly's DS: Data Data Completed and Pending Labs on day of discharge: Labs from last 24 hours 07/26/24 05:53 WBC 5.8 RBC 2.98 L Hgb 9.5 L D Hct 29.4 L MCV 98.7 MCH 31.9 MCHC 32.3 RDW 14.2 Plt Count 331 MPV 8.1 Sodium 137 Potassium 3.6 Chloride 105 Carbon Dioxide 28 Anion Gap 4 BUN 5 L Creatinine 0.70 Estim Creat Clear Calc 89 Estimated GFR > 60 Glucose 88 Calcium 8.1 L Albumin 3.4 L Prealbumin 12.7 L Discharge Plan Discharge Patient Disposition: Home, Self-Care Discharge Instructions: POST OPERATIVE DISCHARGE INSTRUCTIONS CHRIS NAVARRETE M.D. [facility] [address] [place] [address] * No driving for 24 hours after anesthesia and while you are taking pain medication. * Take all prescribed medication as directed * Diet as tolerated. * No lifting or activity that raises blood pressure for 48 hours. * Regular walking / ambulation. * Keep drain site clean / dry. Once you shower do not take pain medication before showering as the combination of medication and heat may cause you to feel dizzy or pass out. * No pools or tubs. * Slowly stand up straight as tolerated. * No straining or lifting more than 20 pounds. * If no bowel movement within 24 hours may use laxative. * Call with any questions or concerns. * Good oral intake / nutrition * Dressing Care: Continue abdominal binder / foam 23 hours per day. If you have any questions or concerns, please call the office . If it is after hours you will be directed to the environmental services associate exchange. Shortness of breath, chest pain, or other medical emergency dial 911 / proceed to the Emergency Room. Patient Instructions: [place] Drain Care (GEN) Stand Alone Forms: General Discharge Instructions Follow-up/Referrals: Chris Navarrete MD [Physician] - 1 Week Discharge Medications: Continued carisoprodol [Soma] 350 mg tablet 350 mg PO PRN PRN (Reason: Muscle Spasm) Patient Comments: Taking this after surgery oxycodone-acetaminophen [Percocet] 5-325 mg tablet 5 - 325 tablet PO PRN PRN (Reason: Pain) Patient Comments: Taking this after surgery docusate sodium [Colace] 100 mg capsule 100 mg PO BID Patient Comments: Taking this after surgery zolpidem [Ambien] 5 mg tablet 5 mg PO HS thyroid (pork) [[place] Thyroid] 90 mg tablet 90 mg PO DAILY turmeric root extract 500 mg Capsule 1,000 mg PO DAILY guar gum Packet 1 packet PO DAILY ashwagandha root extract 300 mg Capsule 300 mg PO DAILY Collagen Skin Renewal 30-833.3 mg Tablet 1 tablet PO DAILY Discontinued enoxaparin [Lovenox] 40 mg/0.4 mL syringe 40 mg subcut DAILY Patient Comments: Taking this after surgery
--- NOTE | 2024-07-26 07:18 | WPDANESPN ---
Anes - Prog Note Post-Op Date/Time: 07/26/24 07:18 Cardiovascular status: normal Respiratory status: normal Airway patency: baseline Mental status: baseline Post-Op hydration status: normal Vital Signs: Last Vital Signs Temp 36.6 C 07/26/24 00:16 Pulse 92 07/26/24 00:16 Resp 20 07/26/24 00:16 BP 163/68 H 07/26/24 00:16 Pulse Ox 100 07/26/24 00:16 O2 Del Method Room Air 07/25/24 23:19 O2 Flow Rate 10 07/25/24 21:30 Pain Score (VAS): 11/03 I/O: Intake & Output 07/25/24 07/25/24 07/26/24 15:59 23:59 07:59 Intake Total 600 Output Total 1000 30 Balance -400 -30 Laboratory Tests 07/26/24 05:53 07/26/24 05:53 07/26/24 05:53 WBC 5.8 RBC 2.98 L Hgb 9.5 L D Hct 29.4 L MCV 98.7 MCH 31.9 MCHC 32.3 RDW 14.2 Plt Count 331 MPV 8.1 Sodium 137 Potassium 3.6 Chloride 105 Carbon Dioxide 28 Anion Gap 4 BUN 5 L Creatinine 0.70 Estim Creat Clear Calc 89 Estimated GFR > 60 Glucose 88 Calcium 8.1 L Albumin 3.4 L Prealbumin 12.7 L Post-procedural complaints: none Patient Feedback: Patient satisfied with anesthetic care.
[2024-07-26 07:39] VITALS: BP 160/82; PULSE 85; RESP 20; TEMP 36.3; O2SAT 100
[2024-07-26] MEDS: DOCUSATE SODIUM 100 MG CAPSULE PO (07:59)
== END 2024-07-26 09:50 | disposition home or self-care (01) ==
LOC: ANHSURGERY 21:25 → ANH3MED 07-26 00:28 → ANHSURGERY 07-26 06:16 → ANH3MED 07-26 06:17
PROVIDERS: Visit Provider Surgery Plastic and Reconstructive Surgery
PROC: (CPT 11042; principal; 2024-07-25 19:00)
DX: L76.82 Other postprocedural complications of skin and subcutaneous tissue (principal); I96 Gangrene, not elsewhere classified; G89.18 Other acute postprocedural pain; D64.9 Anemia, unspecified; Y83.8 Other surgical procedures as the cause of abnormal reaction of the patient, or of later complication, without mention of misadventure at the time of the procedure
CPT/HCPCS: 11042; 36415; 80048; 82040; 84134; 85027; A9270; J0690; J1171; J1200; J2003; J2270; J2405; J3010; J7120

== ENCOUNTER 2024-09-04 09:00 | Outpatient (RCR) | payer OTHER, SELFPAY ==
[2024-08-14 10:40] VITALS: BMI 22.6
--- NOTE | 2024-08-21 12:29 | WPDWOUNDNOTE ---
Wound Care Note Date/Time: 08/21/24 12:29 Assessment and Plan Assessment and plan (1) Skin laxity: Code(s): L57.4 - Cutis laxa senilis Status: Acute Assessment and Plan: S/p belt lipectomy with suction lipectomy, fat grafting to bilateral hip dips, and bilateral brachioplasty. Arms have done well. She required a t junction which postoperative has had some breakdown. Wound is clean with no need for debridement. Continue VAC. Call with any questions or concerns. (2) Localized adiposity: Code(s): E65 - Localized adiposity Status: Acute Review of Systems Review of Systems: Patient was seen after S/p belt lipectomy with suction lipectomy, fat grafting to bilateral hip dips, and bilateral brachioplasty. Her belt lipectomy required a t-scar and she developed some breakdown at that site. Last seen by me 08/12/2024 and at that time wound was 6 x 3 cm with some granulation, no eschar, clean. Exam Narrative: Current wound 6cm x 5.5cm x 1.2cm depth. 75% healthy tissue and 25% granulation tissue. Some of the healthy tissue is adipose. Nothing to debride.
--- NOTE | 2024-09-02 07:36 | PCWOUND ---
WOCN NOTE Patient had an appointment scheduled yesterday 09-01-24 for a wound vac dressing change. She did not cancel or show up. Weather was bad. Left a message for patient to call to reschedule or report her plans for dressing changes. Have not received a call back as of 09/02/24 am.
--- NOTE | 2024-09-03 13:12 | PCWOUND ---
WOCN NOTE Received call from [facility] will be assuming care of abdominal wound and will be seeing the patient on Sunday09/08/24. Received notification from Administration that patient can no longer be followed at the wound center due to signing provider not being credential through [employer]. Per administration, patient may be seen one more time as [facility] can not see the patient until Sunday09/08/24 as she has a wound vac dressing in place. Patient called wound center back after missing her 09/01/24 appointment, patient was informed of situation, and patient has requested to come back to the wound center One more time tomorrow (09/04/24) for wound vac dressing change. Patient verbalized understanding that this would be the last time she could come back to the wound center.
== END 2024-10-27 15:09 | disposition home or self-care (01) ==
LOC: ANHWOC 09:00
PROVIDERS: Visit Provider Surgery Plastic and Reconstructive Surgery
DX: S31.109A Unspecified open wound of abdominal wall, unspecified quadrant without penetration into peritoneal cavity, initial encounter (principal); L57.4 Cutis laxa senilis; E65 Localized adiposity
CPT/HCPCS: 97605; 99213; G0463